=== PATIENT | male | born 1970 | race Caucasian/White ===

== ENCOUNTER 2016-12-16 14:45 | Emergency (ER) | payer OTHER ==
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
[~2016-12-16 14:45] MED LIST: ACID REDUCER75 M1 PO; ADVIL200 M3 PO; WELCHOL625 MG PO
== END 2016-12-16 18:47 | disposition home or self-care (01) ==
LOC: CED 14:45 → CEDOF 18:46 → CED 18:46 → CEDOF 20:52
DX: S61.211A Laceration without foreign body of left index finger without damage to nail, initial encounter (principal)
CPT/HCPCS: 12001; 73140; 90471; 90715; 99283